=== PATIENT | female | born 1960 | race Caucasian/White ===

== ENCOUNTER → 2018-12-12 | Outpatient (CLI) | payer BC ==
[~2018-12-12] MED LIST: HYDR-385 PO; KET10 PO; PROG100C PO
--- NOTE | 2018-12-12 15:50 | RADIOLOGY IMAGING REPORT ---
[place]AC[place] [facility] [place]IENT NAME: Veronica Schmidt : 1960 MR: [id number] V: [id number] EXAM DATE: ORDERING PHYSICIAN: STEPHANIE GUEVARA TECHNOLOGIST: Location[place] [facility] [place] Patient: Veronica Schmidt : 1960 Visit/Account:[id number] Date of Sevice: 12/12/2018 L-SPINE COMPLETE W/BENDING History: Low back pain ADDITIONAL CLINICAL HISTORY none COMPARISON STUDIES: None FINDINGS: Osseous structures: Normal. Spinal axis aligned. There is minimal degenerative facet arthropathy lower lumbar spine Disc space height : There is mild disc space narrowing L3-4, L4-5, and L5-S1. Soft tissues : Surgical clips are seen in the anterior abdominal midline. IMPRESSION: Probable degenerative disc disease L3-4 through L5-S1 Report Dictated By: Scott Estrella MD at 12/12/2018 3:42 PM Report E-Signed By: Scott Estrella MD at 12/12/2018 3:44 PM WSN:[id number]
== END ==
LOC: RAD 14:28
PROVIDERS: ATTEND Chiropractor
DX: M54.5 Low back pain (principal)
CPT/HCPCS: 72114